=== PATIENT | male | born 1975 | race Caucasian/White ===

== ENCOUNTER 2016-10-26 21:08 | Emergency (ER) | payer OTHER ==
[~2016-10-26] VITALS: Ht 167.6 cm; Wt 72.6 kg
[2016-10-26 21:14] VITALS: BP 134/90
[2016-10-26] MEDS ORDERED: diphenhydrAMINE 50 MG/ML VIAL IM ONE (21:20)
[2016-10-26] MEDS ORDERED: HALOPERIDOL IM 5 MG/ML VIAL IM ONE (21:20)
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
--- NOTE | 2016-10-26 21:21 | NUR ---
BIBA TO ER BED 6
--- NOTE | 2016-10-26 21:29 | NUR ---
41 Y/O M BIBA C/O ALOC , ETOH, COMBATIV ON RESTRAINTS, FOUND BOTTLE OF VODKA. PT COMBATIVE, ER MD , CHARGE NURSE AND EMT AT BEDSIDE. NO S/S OF DISTRESS NOTED.
[2016-10-26] MEDS ORDERED: NACL 0.9% 1,000 ML IV ONE (21:45)
[2016-10-26] MEDS ORDERED: POTASSIUM CHL 30 MEQ/ D5-1/2NS 1,000 ML IV ONE (22:40)
--- NOTE | 2016-10-26 22:41 | NUR ---
PT SLEEPING, ON CARDIAC MINITOR, NO S/S OF DISTRESS NOTED. ER MD MADE AWARE OF VS.
--- NOTE | 2016-10-26 23:20 | NUR ---
Call to [facility]. Advised to watch for 6 hours post arrival or until back to baseline. For QTc >500msec treat for possible torsades, ie. Magnesium Sulfate. For QRS > 120msec treat with sodium bicarb boluses. For agitation, treat with benzodiazepines instead of psychotropics to avoid seizures. Notified Dr Armando of all advice.
--- NOTE | 2016-10-26 23:22 | NUR ---
PT CONTINUES SLEEPING, ON CONFIGURATION ENGINEER. NO S/S OF DISTRESS NOTED AT THE MOMENT. WILL CONT TO MONITOR.
--- NOTE | 2016-10-27 00:57 | NUR ---
PT ASLEEP, ON COLLAR POINTER, VSS. NO S/S OF DISTRESS NOTED. [facility] CATH 14 FR INSERTED BY ER WRITTEN ORDERS.
--- NOTE | 2016-10-27 03:20 | NUR ---
PT TAKEN FOR CT SCAN
[2016-10-27] MEDS ORDERED: NACL 0.9% 1,000 ML IV ONE (03:35)
--- NOTE | 2016-10-27 03:38 | NUR ---
PT RESTING IN BED, ASLEEP. NO S/S OF DISTRESS NOTED AT THE MOMENT. CONTINUES ON BEATER ENGINEER HELPER. VSS. WILL CONT TO RIANNA..
--- NOTE | 2016-10-27 03:45 | NUR ---
620 ML OUTPUT FROM ALEX[facility]ER CATH COLLECTED UP TO THIS POINT. NS 0.9 % RUNNING IN AT 999ML/HR. NO S/S OF DISTRESS NOTED.
--- NOTE | 2016-10-27 04:50 | NUR ---
RESTRAINS OFF PER ER MD VERBAL ORDERS. PT WITH NORMAL BEHAVIOR , ER MD EVALUATED PT AT BEDSIDE.
--- NOTE | 2016-10-27 06:08 | NUR ---
PT AWAKE PHONE GIVEN TO US TO CALL FAMILY TO PICK HIM UP.
--- NOTE | 2016-10-27 06:21 | NUR ---
PT'S MOTHER XOCHITL CALLED. PER PT'S MOTHER SHE WILL PICK PT UP SOON. NADIR PRINCE MADE AWARE.
--- NOTE | 2016-10-27 06:32 | NUR ---
Patient discharged with v/s stable. Written and verbal after care instructions given and explained. Patient verbalized understanding. Ambulatory with steady gait. All questions addressed prior to discharge. Advised to follow up with PMD. PARENTS AT BEDSIDE TO PICK PT UP. NO S/S OF DISTRESS NOTED ON DC.
[2016-10-27 06:38] VITALS: BP 99/79
== END 2016-10-27 06:32 | disposition home or self-care (01) ==
LOC: MED 21:08
DX: R41.82 Altered mental status, unspecified (principal); R45.1 Restlessness and agitation; F10.129 Alcohol abuse with intoxication, unspecified
CPT/HCPCS: 36415; 70450; 80053; 80305; 85025; 93005; 96361; 96365; 96366; 96372; 99285; G0482; J1200; J1630; J7030

== ENCOUNTER 2017-01-17 01:35 | Emergency (ER) | payer OTHER ==
[~2017-01-17] VITALS: Ht 170.2 cm; Wt 74.8 kg
[2017-01-17 01:41] VITALS: BP 120/85
--- NOTE | 2017-01-17 02:59 | NUR ---
BIBA TO ER BED 7
[2017-01-17] MEDS ORDERED: MULTIVITAMIN-12 10 ML, THIAMINE 100 MG, MAGNESIUM SULFATE 50% 2,000 MG, FOLIC ACID 5 MG... IV ONE ×5 (03:05)
--- NOTE | 2017-01-17 03:05 | NUR ---
Patient being evaluated by physician at bedside.
[2017-01-17 03:24] LABS: BASOPHILS # (AUTO) 0.3 K/uL (0.00-0.22); BASOPHILS % (AUTO) 4.1 % (0.0-2.0); EOSINOPHILS # (AUTO) 0.2 K/uL (0-0.4); EOSINOPHILS % (AUTO) 2.8 % (0.0-4.0); HEMOGLOBIN 14.4 g/dL (12.0-18.0); LYMPHOCYTES # (AUTO) 1.8 K/uL (2.0-11.5); LYMPHOCYTES % (AUTO) 24.8 % (20.5-51.1); MEAN CORPUSCULAR HEMOGLOBIN 33 pg (27-31); MEAN CORPUSCULAR HGB CONC 34 g/dL (33-37); MEAN CORPUSCULAR VOLUME 97 fL (80-94); MONOCYTES # (AUTO) 0.8 K/uL (0.8-1.0); MONOCYTES % (AUTO) 11.7 % (1.7-9.3); NEUTROPHILS # (AUTO) 4.1 K/uL (1.8-7.7); NEUTROPHILS % (AUTO) 56.6 % (42.2-75.2); PLATELET COUNT (AUTO) 288 K/uL (140-450); RED BLOOD CELL COUNT(AUTO) 4.45 MIL/uL (4.20-6.10); WHITE BLOOD COUNT (AUTO) 7.2 K/uL (4.8-10.8)
[2017-01-17] MEDS ORDERED: MAGNESIUM SULFATE 50% 1000 MG/2 ML VIAL IV ONE (03:24)
[2017-01-17] MEDS ORDERED: MULTIVITAMIN-12 10 ML VIAL IV ONE (03:24)
[2017-01-17] MEDS ORDERED: THIAMINE 200 MG/2 ML VIAL ONE (03:24)
[2017-01-17] MEDS ORDERED: FOLIC ACID 5 MG/ML SYR ONE (03:24)
--- NOTE | 2017-01-17 03:30 | NUR ---
MEDICATED PER ERMDS ORDER , PATIENT TOLERATED WELL
[2017-01-17 03:32] LABS: BARBITURATE, URINE NEG. ng/ml (NEG <=200); BENZODIAZEPINE, URINE NEG. ng/mL (NEG <=200); CANNABINOID, URINE NEG. ng/mL (NEG <=50); COCAINE, URINE NEG. ng/mL (NEG <=300); OPIATE, URINE NEG. ng/mL (NEG <=2000); PHENCYCLIDINE SCREEN,URINE NEG. ng/mL (NEG <=25)
[2017-01-17 03:44] LABS: ALBUMIN 3.9 g/dL (3.4-5.0); ANION GAP 14.6 (8-16); CREATININE 0.8 mg/dL (0.7-1.3); POTASSIUM 3.6 mmol/L (3.5-5.1); TOTAL BILIRUBIN 0.6 mg/dL (0.0-1.0)
--- NOTE | 2017-01-17 04:00 | NUR ---
Patient appears to be resting comfortably in bed. Vital Signs within normal limits. Respirations even and unlabored.
--- NOTE | 2017-01-17 07:08 | NUR ---
REPORT GIVEN TO DALTON JOHNS FOR CONTINUITY OF CARE
--- NOTE | 2017-01-17 07:10 | NUR ---
REPORT RECEIVED FROM TEMO JOHNS---PT RESTING ON LEFT SIDE WITH OU CLOSED, NO S/S RESP DISTRESS, NO GRIMACE----BANANA BAG CURRENTLY INFUSING WILL CONTINUE TO OBSERVE FOR ANY CHANGES AWAITS DISPO
--- NOTE | 2017-01-17 08:42 | NUR ---
PT A/O X4 SITTING UP--HANDED PT 2 CUPS OF L8R---TJOIEQJOL WITH STEADY GAIT NOTIFIED
[2017-01-17 08:46] VITALS: BP 113/74
--- NOTE | 2017-01-17 08:46 | NUR ---
Patient discharged with v/s stable. Written and verbal after care instructions given and explained. Patient verbalized understanding. Ambulatory with steady gait. All questions addressed prior to discharge. Advised to follow up with PMD.
== END 2017-01-17 08:46 | disposition home or self-care (01) ==
LOC: MED 01:35
DX: F10.129 Alcohol abuse with intoxication, unspecified (principal)
CPT/HCPCS: 36415; 80053; 80305; 84484; 85025; 96365; 96366; 99285; A9153; G0482; J3411; J3475; J3490; J7030

== ENCOUNTER 2018-04-14 21:41 | Inpatient (IN) | payer OTHER ==
[~2018-04-14] VITALS: Ht 170.2 cm; Wt 72.1 kg
[2018-04-14 21:45] VITALS: BP 140/93
--- NOTE | 2018-04-14 21:45 | NUR ---
42/M CAME IN W C/O VOMITING X4 AND ABD DISTENTION X 2 DAYS. ABD ROUND AND DISTENDED, -TENDERNESS, BS ACTIVE X4. DENIES HEMATEMESIS, CP/SOB. PT APPEARS JAUNDICED, +JAUNDICED SCLERA. ALSO REPORTS BRIGHT RED BLOOD STOOL X1 AND DARK URINE. AOX4. DENIES PMH, REPORTS HEAVY DRINKING OF LIQUOR AND BEER DAILY X 6 MONTHS
--- NOTE | 2018-04-14 21:45 | NUR ---
PT AMBULATED TO ER BED 11
[2018-04-14] MEDS ORDERED: NACL 0.9% 1,000 ML IV SCH (21:59)
[2018-04-14 22:23] LABS: HEMATOCRIT 42.7 % (36-52); HEMOGLOBIN 14.6 g/dL (12.0-18.0); MEAN CORPUSCULAR HEMOGLOBIN 33 pg (27-31); MEAN CORPUSCULAR HGB CONC 34 g/dL (33-37); MEAN CORPUSCULAR VOLUME 96.1 fL (80-94); PLATELET COUNT (AUTO) 193 K/uL (140-450); RED BLOOD CELL COUNT(AUTO) 4.44 MIL/uL (4.20-6.10); RED CELL DISTRIBUTION WIDTH 14.3 % (11.6-13.7); WHITE BLOOD COUNT (AUTO) 8.6 K/uL (4.8-10.8)
[2018-04-14 22:37] LABS: APPEARANCE,URINE CLEAR (CLEAR); BLOOD, URINE TRACE-L (NEGATIVE); LEUKOCYTE ESTERASE ,URINE NEGATIVE (NEGATIVE); NITRITE, URINE NEGATIVE (NEGATIVE); UGLUCOSE 1+ (NEGATIVE)
[2018-04-14 22:39] LABS: ALBUMIN 2.4 g/dL (3.4-5.0); ANION GAP 8.4 (8-16); CARBON DIOXIDE 29.6 mmol/L (21-32); CREATININE 1.1 mg/dL (0.7-1.3); PROTHROMBIN TIME 12.9 secs (10.8-13.4); TOTAL BILIRUBIN 8.7 mg/dL (0.0-1.0)
[2018-04-14 22:42] LABS: COLOR,URINE AMBER (YELLOW)
[2018-04-14 22:45] LABS: BILIRUBIN,URINE LARGE (NEGATIVE); RBC,URINE 0-5 (RARE) /HPF (0-5); WBC,URINE 0-5 (RARE) /HPF (0-5)
[2018-04-14 23:05] LABS: LYMPHOCYTES % (MANUAL) 23 % (20-46); MONOCYTES % (MANUAL) 9 % (5-12)
[2018-04-14] MEDS ORDERED: FOLIC ACID 1 MG TAB PO ONE (23:05)
[2018-04-14] MEDS ORDERED: KCL 20 MEQ/WATER INJ PREMIX 100 ML IV ONE (23:05)
[2018-04-14] MEDS ORDERED: DEXT 5% / NACL 0.9% 500 ML IV ONE (23:05)
[2018-04-14] MEDS ORDERED: MAG SULF 2000 MG/WATER PREMIX 50 ML IV ONE (23:05)
[2018-04-14] MEDS ORDERED: THIAMINE 200 MG/2 ML VIAL IM ONE (23:05)
[2018-04-15] MEDS ORDERED: ONDANSETRON 4 MG/2 ML VIAL IVP PRN (00:25)
[2018-04-15] MEDS ORDERED: LORazepam 2 MG/ML VIAL IVP PRN (00:25)
--- NOTE | 2018-04-15 00:38 | NUR ---
Patient will be admitted to [facility]. Admited to MS. Will go to room 107A. Belongings list completed. Report to ADRI JOHNS.
[2018-04-15 00:40] VITALS: BP 111/62
--- NOTE | 2018-04-15 00:40 | NUR ---
PT ARRIVED TO UNIT VIA GURNEY. PT AMBULATED TO BED. RECEIVED REPORT FROM ER NURSE CAITLYN-NAT AT BEDSIDE. PT AOX4, ON ROOM AIR WITH IV SITE ON LEFT AC #18G RUNNING BANANA BAG. PT TOLERATING WELL. SKIN INTACT -RIGHT FINGER TIPS ARE DRY AND CRACKED. DISCUSSED PLAN OF CARE AND PT VERBALIZED UNDERSTANDING. VITAL SIGNS TAKEN AND MRSA SWAB COLLECTED. NO S/S OF RESPIRATORY DISTRESS OR DISCOMFORT NOTED AT THIS TIME. ORIENTED PT TO BEDROOM, BATHROOM AND CALL LIGHT. BED IN LOWEST POSITION, BED BREAKS ON, BOTH SIDE RAILS UP. BEDSIDE TABLE AND CALL LIGHT ARE WITHIN REACH. WILL CONTINUE TO MONITOR.
[2018-04-15] MEDS: DEXT 5% / NACL 0.45% 1,000 ML IV SCH ×2 (02:05→12:38)
--- NOTE | 2018-04-15 02:05 | NUR ---
NEW BAG OF IVF HUNG AND TOLERATED WELL. PT C/O BACK PAIN-WILL ADMINISTER PAIN MEDICATION. NO S/S OF RESPIRATORY DISTRESS OR DISCOMFORT NOTED AT THIS TIME. WILL CONTINUE TO MONITOR.
[2018-04-15] MEDS: HYDROcodone/APAP 5/325 MG 1 TAB TAB PO PRN ×2 (02:10→15:39)
--- NOTE | 2018-04-15 02:10 | NUR ---
NORCO GIVEN FOR BACK PAIN. PT TOLERATED WELL. NO S/S OF RESPIRATORY DISTRESS OR DISCOMFORT NOTED AT THIS TIME. WILL CONTINUE TO MONITOR.
--- NOTE | 2018-04-15 04:00 | NUR ---
PT CONTINUES TO SLEEP IN BED. NO S/S OF RESPIRATORY DISTRESS OR DISCOMFORT NOTED AT THIS TIME. WILL CONTINUE TO MONITOR.
--- NOTE | 2018-04-15 06:00 | NUR ---
PT CONTINUES TO SLEEP IN BED. NO S/S OF RESPIRATORY DISTRESS OR DISCOMFORT NOTED AT THIS TIME. WILL CONTINUE TO MONITOR.
--- NOTE | 2018-04-15 06:23 | NUR ---
PATIENT HAS BEEN SCREENED AND CATEGORIZED LOW NUTRITION RISK. PATIENT WILL BE SEEN WITHIN 7 DAYS OF ADMISSION. 04/21/18 NICOLE MIRANDA MS, RDN
--- NOTE | 2018-04-15 07:24 | NUR ---
ENDORSED PT CARE TO DAY SHIFT NURSE UJAN-RN FOR CONTINUITY OF CARE.
--- NOTE | 2018-04-15 07:25 | NUR ---
RECEIVED BEDSIDE REPORT FROM MANAGER STRATEGIC SOURCING NURSE. PATIENT IS AWAKE, ALERT AND ORIENTEDX4. NO SIGNS OF DISTRESS ON RA. SKIN IS INTACT. IV ON L AC 18G INFUSING D5 1/2 NS AT 100. CLEAN, DRY AND INTACT. PATIENT IS AMBULATORY, CONTINENT. WILL CONTINUE TO MONITOR THE PATIENT. BED IN LOW POSITION. CALL LIGHT WITHIN REACH
[2018-04-15 08:00] VITALS: BP 110/73
[2018-04-15] MEDS ORDERED: ALUMINUM HYD/MAG/SIMETHICONE 30 ML UDC PO PRN (08:10)
--- NOTE | 2018-04-15 08:55 | NUR ---
ADMINISTERED MEDS FOR PRN BLOATING. PATIENT TOLERATED WELL. WELL CONTINUE TO MONITOR THE PATIENT.
--- NOTE | 2018-04-15 10:00 | NUR ---
PATIENT IN SO SIGNS OF DISTRESS. BED IN LOW POSITION. CALL LIGHT WITHIN REACH. WILL CONTINUE TO MONITOR THE PATIENT
--- NOTE | 2018-04-15 11:00 | NUR ---
TALKED TO DR DOCKERY. PER DR DOCKERY GET A CBC AND CMP, IF LIVER LABS ARE BETTER PATIENT MAY BE DISCHARGED TODAY. WILL CALL HIM IF LIVER ENZYMES ARE IMPROVING.
--- NOTE | 2018-04-15 12:41 | NUR ---
ADMINISTERED IVF. PATIENT TOLERATED WELL. WILL CONTINUE TO MONITOR THE PATIENT. CHILDREN ARE AT BEDSIDE.
--- NOTE | 2018-04-15 13:45 | NUR ---
FAMILY STILL AT BEDSIDE. LAUGHING AND COMMUNICATING WITH ONE ANOTHER. WILL CONTINUE TO MONITOR THE PATIENT
[2018-04-15 14:10] LABS: BASOPHILS % (AUTO) 0.2 % (0.0-2.0); EOSINOPHILS % (AUTO) 0.3 % (0.0-4.0); HEMATOCRIT 41.7 % (36-52); HEMOGLOBIN 14.1 g/dL (12.0-18.0); LYMPHOCYTES # (AUTO) 6.5 K/uL (2.0-11.5); LYMPHOCYTES % (AUTO) 81.9 % (20.5-51.1); MEAN CORPUSCULAR HEMOGLOBIN 33 pg (27-31); MEAN CORPUSCULAR HGB CONC 34 g/dL (33-37); MONOCYTES # (AUTO) 0.3 K/uL (0.8-1.0); MONOCYTES % (AUTO) 3.8 % (1.7-9.3); NEUTROPHILS # (AUTO) 1.1 K/uL (1.8-7.7); NEUTROPHILS % (AUTO) 13.8 % (42.2-75.2); PLATELET COUNT (AUTO) 176 K/uL (140-450); RED CELL DISTRIBUTION WIDTH 14.9 % (11.6-13.7); WHITE BLOOD COUNT (AUTO) 7.9 K/uL (4.8-10.8)
[2018-04-15 14:59] LABS: ANION GAP 8.6 (8-16); CARBON DIOXIDE 28.5 mmol/L (21-32); CREATININE 1.1 mg/dL (0.7-1.3); POTASSIUM 3.1 mmol/L (3.5-5.1)
[2018-04-15 15:05] LABS: ALBUMIN 2.1 g/dL (3.4-5.0); TOTAL BILIRUBIN 8.9 mg/dL (0.0-1.0)
--- NOTE | 2018-04-15 15:40 | NUR ---
ADMINISTERED PRN PAIN MEDS. PATIENT TOLERATED WELL. WILL CONTINUE TO MONITOR THE PATIENT.
[2018-04-15 16:00] VITALS: BP 114/83
--- NOTE | 2018-04-15 17:00 | NUR ---
FAMILY AT BEDSIDE. NO SIGNS OF DISTRESS
--- NOTE | 2018-04-15 18:35 | NUR ---
EDUCATED PATIENT ON DISEASE, ABN S/SX, FOLLOW UP W PCP, WHEN TO GO TO THE ER, EDUCATED ON PNA AND FLU REFUSAL. REMOVED IV. TIP INTACT. REMOVED ID BANDS. PATIENT VERBALIZED UNDERSTANDING. PATIENT LEFT WALKING TO FRONT LOBBY WITH CHILDREN AND SISTER IN STABLE CONDITION
[2018-04-15 19:49] LABS: LYMPHOCYTES % (MANUAL) 28 % (20-46); MONOCYTES % (MANUAL) 8 % (5-12)
--- NOTE | 2018-04-17 14:16 | NUR ---
CM NOTE PATIENT'S PCP IS DR. ANUJ KELLEY. PER LENCHO OF DR. ANUJ [facility] # [phone] PATIENT IS SET UP FOR OUTPATIENT FF UP APPOINTMENT ON 04/24 2:00 PM AT CLINIC IN [address] [place] [address]. ATTEMPTED TO CALL PATIENT'S CONTACT NUMBER # [phone] X [phone] AND LEFT MESSAGE TO CALL BACK. NO CALL BACK AT THIS TIME.
== END 2018-04-15 18:35 | disposition home or self-care (01) | DRG 280 ==
LOC: MED 21:41 → MMU 04-15 00:26 → MTU 04-15 00:59
PROVIDERS: ADMIT Hospitalist; ATTEND Hospitalist
DX: K70.10 Alcoholic hepatitis without ascites (principal); E83.51 Hypocalcemia; F10.10 Alcohol abuse, uncomplicated; E87.1 Hypo-osmolality and hyponatremia; E87.6 Hypokalemia; R73.9 Hyperglycemia, unspecified; R16.0 Hepatomegaly, not elsewhere classified; Y90.9 Presence of alcohol in blood, level not specified
CPT/HCPCS: 36415; 76705; 80053; 81001; 83690; 85025; 85610; 85730; 86886; 86900; 86901; 87081; 87086; 93005; 96361; 96365; 96368; 96372; 99285; J3411; J3475; J3480; Q0092

== ENCOUNTER 2019-08-18 07:45 | Emergency (ER) | payer MEDICAID, OTHER ==
[~2019-08-18] VITALS: Ht 170.2 cm; Wt 76.2 kg
[2019-08-18 07:53] VITALS: BP 103/66
--- NOTE | 2019-08-18 08:11 | NUR ---
C/O MILY LEGS & ABDOMEN RASH X 1 MONTHS.PT AWAKE, ALERT, AFIBRILE , AMBULATORY WITH STEADY GAIT, DENIES SOB , SCE , CBS BLF ,RASHES NOTED UE AND LE, FLAT SOFT NABS , NONTENDER. MED HX: DENIES
[2019-08-18 08:30] VITALS: BP 103/66
--- NOTE | 2019-08-18 08:30 | NUR ---
Patient discharged with v/s stable. Written and verbal after care instructions given and explained regarding skin rashes. Patient alert, oriented and verbalized understanding of instructions. Ambulatory with steady gait. All questions addressed prior to discharge. ID band removed. Patient advised to follow up with PMD. Rx of hydrocortisone topical cream given. Patient educated on indication of medication including possible reaction and side effects. Opportunity to ask questions provided and answered.
== END 2019-08-18 08:30 | disposition home or self-care (01) ==
LOC: MED 07:45
DX: L25.9 Unspecified contact dermatitis, unspecified cause (principal); R11.2 Nausea with vomiting, unspecified
CPT/HCPCS: 99282

== ENCOUNTER 2019-11-30 14:23 | Emergency (ER) | payer MEDICAID, OTHER ==
[~2019-11-30] VITALS: Ht 170.2 cm; Wt 77.1 kg
[2019-11-30 14:30] VITALS: BP 130/91
--- NOTE | 2019-11-30 14:33 | NUR ---
ambulated to bed 7
--- NOTE | 2019-11-30 14:37 | NUR ---
44 Y/O M C/C RIGHT THUMB INJURY X THIS AFTERNOON. PER PT GOT IN A FAMILY ARGUMENT AND DOES NOT RECALL HOW THE INJURY HAPPENED. DENIES LOC/HEAD TRAUMA. NEURO VASCULAR,CMS,ROM OF RIGHT HAND AND 5 DIGITS WNL. SWOLLENESS NOTED ON RIGHT THUMB AREA. NKA. NO HX. NO RX. NO NVD. SIDE RAIL X1.
--- NOTE | 2019-11-30 14:41 | NUR ---
RAD AT BEDSIDE
--- NOTE | 2019-11-30 14:43 | NUR ---
ERMD AT BEDSIDE
[2019-11-30] MEDS ORDERED: IBUPROFEN 600 MG TAB PO ONE (14:55)
[2019-11-30] MEDS ORDERED: ACETAMINOPHEN EXTRA STRENGTH 500 MG TAB PO ONE (14:55)
--- NOTE | 2019-11-30 15:00 | NUR ---
PT PLACED IN RIGHT FABIRCATED 3" FIBERGLASS ORTHO THUMB SPICA SPLINT, WRAPPED WITH 1" MANOLO WRAP AND 3" MANOLO WRAP, [facility] BEFORE AND AFTER.
[2019-11-30 15:19] VITALS: BP 130/91
--- NOTE | 2019-11-30 15:19 | NUR ---
Patient discharged with v/s stable. Written and verbal after care instructions given and explained. Patient alert, oriented and verbalized understanding of instructions. Ambulatory with steady gait. All questions addressed prior to discharge. ID band removed. Patient advised to follow up with PMD. Rx of TYLENOL 325MG AND MOTRIN 800MG given. Patient educated on indication of medication including possible reaction and side effects. Opportunity to ask questions provided and answered.
== END 2019-11-30 15:19 | disposition home or self-care (01) ==
LOC: MED 14:23
DX: S62.501A Fracture of unspecified phalanx of right thumb, initial encounter for closed fracture (principal); X58.XXXA Exposure to other specified factors, initial encounter; Y93.89 Activity, other specified; Y92.89 Other specified places as the place of occurrence of the external cause; Y99.8 Other external cause status
CPT/HCPCS: 73130; 99283

== ENCOUNTER 2020-03-10 20:51 | Emergency (ER) | payer OTHER ==
[~2020-03-10] VITALS: Ht 167.6 cm; Wt 84.4 kg
[~2020-03-10 20:51] MED LIST: OMEP20TC12 PO; THIA100T45 PO
[2020-03-10 21:14] VITALS: BP 155/93
--- NOTE | 2020-03-10 21:24 | NUR ---
PT TAKEN TO BED 9
--- NOTE | 2020-03-10 21:41 | NUR ---
Dr. King examining patient.
--- NOTE | 2020-03-10 22:16 | NUR ---
ASSISTED WITH DERMABOND PROCEDURE
[2020-03-10 22:20] VITALS: BP 155/93
== END 2020-03-10 22:20 | disposition home or self-care (01) ==
LOC: MED 20:51
DX: S01.111A Laceration without foreign body of right eyelid and periocular area, initial encounter (principal); Z79.899 Other long term (current) drug therapy; Y04.8XXA Assault by other bodily force, initial encounter; Y93.89 Activity, other specified; Y92.89 Other specified places as the place of occurrence of the external cause; Y99.8 Other external cause status
CPT/HCPCS: 90471; 90715; 99283

== ENCOUNTER 2020-05-05 17:23 | Emergency (ER) | payer OTHER ==
[~2020-05-05] VITALS: Ht 170.2 cm; Wt 74.8 kg
[2020-05-05 17:42] VITALS: BP 132/79
--- NOTE | 2020-05-05 17:47 | NUR ---
LOBBY. HAND ON URINE CUP.
[2020-05-05] MEDS ORDERED: ALUMINUM HYD/MAG/SIMETHICONE 30 ML UDC PO ONE (18:15)
[2020-05-05] MEDS ORDERED: NACL 0.9% 1,000 ML IV ONE (18:15)
[2020-05-05 18:38] LABS: BASOPHILS % (AUTO) 0.1 % (0.0-2.0); EOSINOPHILS # (AUTO) 0.4 K/uL (0-0.4); EOSINOPHILS % (AUTO) 6.7 % (0.0-4.0); HEMATOCRIT 39.7 % (36-52); HEMOGLOBIN 12.9 g/dL (12.0-18.0); LYMPHOCYTES # (AUTO) 1.8 K/uL (2.0-11.5); LYMPHOCYTES % (AUTO) 33.4 % (20.5-51.1); MEAN CORPUSCULAR HEMOGLOBIN 26 pg (27-31); MEAN CORPUSCULAR HGB CONC 33 g/dL (33-37); MEAN CORPUSCULAR VOLUME 79.6 fL (80-94); MONOCYTES # (AUTO) 0.6 K/uL (0.8-1.0); MONOCYTES % (AUTO) 11.6 % (1.7-9.3); NEUTROPHILS # (AUTO) 2.5 K/uL (1.8-7.7); NEUTROPHILS % (AUTO) 48.2 % (42.2-75.2); PLATELET COUNT (AUTO) 292 K/uL (140-450); RED BLOOD CELL COUNT(AUTO) 4.98 MIL/uL (4.20-6.10); RED CELL DISTRIBUTION WIDTH 26.6 % (11.6-13.7); WHITE BLOOD COUNT (AUTO) 5.2 K/uL (4.8-10.8)
--- NOTE | 2020-05-05 18:45 | NUR ---
PT C/O DIFFUSED ABDOMINAL PAIN 11/06 WITH DIZZINESS X 4 DAYS. PT STATES HE HAS BEEN DRINKING TOO MUCH RECENTLY. DENIES FEVER, COUGH, SOB, CHEST PAIN, N/V/D, OR SICK CONTACT. PMH: ETOH
[2020-05-05 18:46] LABS: ANION GAP 17.2 (8-16); CARBON DIOXIDE 24.7 mmol/L (21-32); CREATININE 0.9 mg/dL (0.6-1.3); POTASSIUM 3.9 mmol/L (3.5-5.1)
[2020-05-05 18:53] LABS: ALBUMIN 4.2 g/dL (3.4-5.0); BILIRUBIN,DIRECT 0.2 mg/dL (0.0-0.3); TOTAL BILIRUBIN 0.6 mg/dL (0.0-1.0)
--- NOTE | 2020-05-05 19:23 | NUR ---
REPORT GIVEN TO NAT VÁZQUEZ. TX OF CARE AT THIS TIME.
--- NOTE | 2020-05-05 20:19 | NUR ---
IV removed, catheter intact and site benign. Applied folded 4x4 gauze and tape to stop bleeding.
[2020-05-05 20:22] VITALS: BP 125/74
== END 2020-05-05 20:20 | disposition home or self-care (01) ==
LOC: MED 17:23
DX: R12 Heartburn (principal)
CPT/HCPCS: 36415; 80048; 80076; 81002; 83690; 85025; 93005; 96360; 99284; J7030

== ENCOUNTER 2020-07-04 09:30 | Emergency (ER) | payer OTHER ==
[~2020-07-04] VITALS: Ht 170.2 cm; Wt 83.9 kg
[2020-07-04 09:33] VITALS: BP 135/61
--- NOTE | 2020-07-04 09:42 | NUR ---
45 YO M BIB SELF FOR C/C OF 10/10 R LOWER BACK PAIN SINCE 0000 THIS MORNING. PT STATES HE HAS BEEN LIFTING HEAVY AT WORK AND FELT HE STRAINED HIS BACK. PT STATES HE WOKE UP IN THE MIDLDLE OF THIS NIGHT WITH SHRAP PAIN, DENIES OTC MEDS. DENIES NUMBNESS/TINGELING IN EXTREMEITIES, DENIES INCONTINENCE. PT STATES HE HAS HAS AN UNSTEADY GAIT, WHEELCHAIR ASSISTED TO BEDSIDE. BED LOCKED AND IN LOWEST POSITION, SIDE RAILS X1. MED HX: DENIES NKA
--- NOTE | 2020-07-04 09:46 | NUR ---
DR. WALKER AT BEDSIDE EXAMINING PT
[2020-07-04] MEDS ORDERED: LIDOCAINE MPF 1% 10 MG/ML VIAL INJ ONE (09:50)
[2020-07-04] MEDS ORDERED: ACETAMINOPHEN 325 MG TAB PO ONE (09:50)
--- NOTE | 2020-07-04 09:54 | NUR ---
PT TAKEN TO RAD VIA WHEELCHAIR
--- NOTE | 2020-07-04 10:03 | NUR ---
Patient returned from x-ray.
--- NOTE | 2020-07-04 10:17 | NUR ---
Dr. Cole is reevaluating the patient at bedside.
[2020-07-04 11:07] VITALS: BP 153/91
--- NOTE | 2020-07-04 11:07 | NUR ---
Patient discharged with v/s stable. Written and verbal after care instructions given and explained. Patient alert, oriented and verbalized understanding of instructions. Ambulatory with steady gait. All questions addressed prior to discharge. ID band removed. Patient advised to follow up with PMD. Rx of NORCO, NAPROXEN given. Patient educated on indication of medication including possible reaction and side effects. Opportunity to ask questions provided and answered.
== END 2020-07-04 11:07 | disposition home or self-care (01) ==
LOC: MED 09:30
DX: S39.012A Strain of muscle, fascia and tendon of lower back, initial encounter (principal); R25.2 Cramp and spasm; X50.9XXA Other and unspecified overexertion or strenuous movements or postures, initial encounter; Y93.89 Activity, other specified; Y92.89 Other specified places as the place of occurrence of the external cause; Y99.8 Other external cause status
CPT/HCPCS: 20552; 72100; 99284; J2001; 99283

== ENCOUNTER 2022-10-30 23:15 | Emergency (ER) | payer OTHER ==
[~2022-10-30] VITALS: Ht 170.2 cm; Wt 74.8 kg
[~2022-10-30 23:15] MED LIST changes: +OMEP-278 PO; -OMEP20TC12 PO
[2022-10-30 23:23] VITALS: BP 150/90
--- NOTE | 2022-10-31 01:56 | NUR ---
PT TO BED #7
--- NOTE | 2022-10-31 02:02 | NUR ---
47YR OLD MALE BIB SELF C/O ABD PAIN X1DAY. PT STATES ABD PAIN IS RLQ NON RADIATING. SHARP 8/10 PAIN. DENIES CP OR SOB. DENIES N/V/D. PAIN STARTED YESTERDAY AFTERNOON. NKDA NO MED HX
[2022-10-31] MEDS ORDERED: KETOROLAC 30 MG/ML VIAL IM ONE (02:25)
[2022-10-31] MEDS ORDERED: NAPR-54 PO (03:08)
[2022-10-31 03:16] VITALS: BP 138/87
--- NOTE | 2022-10-31 03:18 | NUR ---
PT TO LOBBY AWAITING RIDE AND OR UBER IF AVAILABLE.
== END 2022-10-31 03:13 | disposition home or self-care (01) ==
LOC: MED 23:15
DX: R07.89 Other chest pain (principal); Z79.899 Other long term (current) drug therapy
CPT/HCPCS: 71045; 96372; 99283; J1885; Q0092

== ENCOUNTER 2022-11-01 20:56 | Emergency (ER) | payer OTHER ==
[~2022-11-01] VITALS: Ht 170.2 cm; Wt 74.8 kg
[~2022-11-01 20:56] MED LIST changes: +NAPR-54 PO
[2022-11-01 21:17] VITALS: BP 127/85
--- NOTE | 2022-11-01 22:34 | NUR ---
Pt to bed 4.
--- NOTE | 2022-11-01 23:38 | NUR ---
Radiologist at bedside.
--- NOTE | 2022-11-01 23:38 | NUR ---
Patient resting in bed, A/Ox4, chest rise and fall symmetrical, no s/s of distress, on monitor.
--- NOTE | 2022-11-02 00:02 | NUR ---
Patient being evaluated by physician at bedside.
--- NOTE | 2022-11-02 00:04 | NUR ---
X-Ray at bedside.
[2022-11-02] MEDS ORDERED: LIDOCAINE 1% 500 MG/ 50 ML VIAL INJ ONE (00:30)
[2022-11-02] MEDS ORDERED: HYDROcodone/APAP 5/325 MG 1 TAB TAB PO ONE (00:30)
[2022-11-02] MEDS ORDERED: LIDOCAINE MPF 1% 5 ML ONE (00:44)
--- NOTE | 2022-11-02 02:00 | NUR ---
Patient resting in bed, A/Ox4, chest rise and fall symmetrical, no c/o pain or s/s of distress, on monitor.
[2022-11-02] MEDS ORDERED: ACET-10509 PO (02:02)
[2022-11-02 02:22] VITALS: BP 22/85
== END 2022-11-02 02:22 | disposition home or self-care (01) ==
LOC: MED 20:56
DX: S63.284A Dislocation of proximal interphalangeal joint of right ring finger, initial encounter (principal); Z79.899 Other long term (current) drug therapy; X58.XXXA Exposure to other specified factors, initial encounter; Y93.89 Activity, other specified; Y92.89 Other specified places as the place of occurrence of the external cause; Y99.8 Other external cause status
CPT/HCPCS: 26770; 73140; 99284; J2001; Q0092

== ENCOUNTER 2022-12-12 23:35 | Emergency (ER) | payer OTHER ==
[~2022-12-12 23:35] MED LIST changes: +ACET-10509 PO
--- NOTE | 2022-12-13 00:05 | NUR ---
Called patient's name for triage x3 but no one came forward. Went outside the ER and called for patient's name again x3 but no one still came forward.
--- NOTE | 2022-12-13 00:15 | NUR ---
CALLED FOR PT IN [place]; UNABLE TO LOCATE. PT LWBS
== END 2022-12-13 00:05 | disposition left against medical advice (07) ==
LOC: MED 23:35
DX: T67.5XXA Heat exhaustion, unspecified, initial encounter (principal); Z53.21 Procedure and treatment not carried out due to patient leaving prior to being seen by health care provider; X58.XXXA Exposure to other specified factors, initial encounter; Y93.89 Activity, other specified; Y92.89 Other specified places as the place of occurrence of the external cause; Y99.8 Other external cause status